=== PATIENT | male | born 1975 | race African-American/Black ===

== ENCOUNTER 2017-01-13 14:58 | Emergency (ER) | payer SELFPAY ==
[~2017-01-13 14:58] MED LIST: FLEXERIL10 MG PO; NO MEDICATIONS; PREDNISONE PO
== END 2017-01-13 15:37 | disposition home or self-care (01) ==
LOC: SED 14:58
DX: L02.411 Cutaneous abscess of right axilla (principal); F17.210 Nicotine dependence, cigarettes, uncomplicated
CPT/HCPCS: 10060; 99283

== ENCOUNTER 2017-01-15 13:50 | Emergency (ER) | payer SELFPAY | END 2017-01-15 13:55 | disposition home or self-care (01) | LOC: SED 13:50 | DX: Z48.01 Encounter for change or removal of surgical wound dressing (principal); F17.210 Nicotine dependence, cigarettes, uncomplicated | CPT/HCPCS: 99281 ==